=== PATIENT | female | born 1960 | race Caucasian/White ===

== ENCOUNTER 2019-12-17 10:57 | Outpatient (REF) | payer OTHER, SELFPAY | END 2019-12-17 10:58 | disposition home or self-care (01) | LOC: HO.BBR 10:57 | PROVIDERS: PCP Internal Medicine; Visit Provider Internal Medicine Hematology | DX: E83.110 Hereditary hemochromatosis (principal) | CPT/HCPCS: 99195 ==

== ENCOUNTER 2020-05-29 11:45 | Outpatient (REF) | payer OTHER, SELFPAY | END 2020-05-29 11:46 | disposition home or self-care (01) | LOC: HO.BBR 11:45 | PROVIDERS: Visit Provider Internal Medicine Hematology | DX: Z13.89 Encounter for screening for other disorder (principal) ==

== ENCOUNTER 2020-09-25 08:45 | Outpatient (REF) | payer OTHER, SELFPAY | END 2020-09-25 08:46 | disposition home or self-care (01) | LOC: HO.BBR 08:45 | PROVIDERS: PCP Internal Medicine; Visit Provider Internal Medicine Hematology | DX: Z13.89 Encounter for screening for other disorder (principal) ==

== ENCOUNTER 2021-01-25 13:56 | Outpatient (REF) | payer OTHER, SELFPAY | END 2021-01-25 13:57 | disposition home or self-care (01) | LOC: HO.BBR 13:56 | PROVIDERS: Visit Provider Internal Medicine Hematology | DX: Z13.89 Encounter for screening for other disorder (principal) ==

== ENCOUNTER 2021-04-27 11:17 | Outpatient (REF) | payer OTHER, SELFPAY | END 2021-04-27 11:18 | disposition home or self-care (01) | LOC: HO.BBR 11:17 | PROVIDERS: Visit Provider Internal Medicine Hematology | DX: Z13.89 Encounter for screening for other disorder (principal) ==

== ENCOUNTER 2021-10-28 09:53 | Outpatient (REF) | payer OTHER, SELFPAY | END 2021-10-28 09:54 | disposition home or self-care (01) | LOC: HO.BBR 09:53 | PROVIDERS: Visit Provider Internal Medicine Hematology | DX: Z13.89 Encounter for screening for other disorder (principal) ==

== ENCOUNTER 2022-05-03 07:49 | Outpatient (REF) | payer OTHER, SELFPAY | END 2022-05-03 07:50 | disposition home or self-care (01) | LOC: HO.BBR 07:49 | PROVIDERS: Visit Provider Internal Medicine Hematology | DX: Z13.89 Encounter for screening for other disorder (principal) ==

== ENCOUNTER 2022-10-11 08:02 | Outpatient (REF) | payer OTHER, SELFPAY | END 2022-10-11 08:03 | disposition home or self-care (01) | LOC: HO.BBR 08:02 | PROVIDERS: PCP Internal Medicine; Visit Provider Internal Medicine Hematology | DX: Z13.89 Encounter for screening for other disorder (principal) ==

== ENCOUNTER 2023-11-07 08:00 | Outpatient (REF) | payer OTHER, SELFPAY | END 2023-11-07 08:01 | disposition home or self-care (01) | LOC: HO.BBR 08:00 | PROVIDERS: PCP Internal Medicine; Visit Provider Internal Medicine Hematology | DX: Z13.89 Encounter for screening for other disorder (principal) ==

== ENCOUNTER 2024-05-10 08:11 | Outpatient (REF) | payer OTHER, SELFPAY | END 2024-05-10 08:12 | disposition home or self-care (01) | LOC: HO.BBR 08:11 | PROVIDERS: PCP Internal Medicine; Visit Provider Internal Medicine Hematology | DX: Z13.89 Encounter for screening for other disorder (principal) ==

== ENCOUNTER 2024-11-21 07:56 | Outpatient (REF) | payer OTHER, SELFPAY | END 2024-11-21 07:57 | disposition home or self-care (01) | LOC: HO.BBR 07:56 | PROVIDERS: Visit Provider Internal Medicine Hematology | DX: Z13.89 Encounter for screening for other disorder (principal) ==